=== PATIENT | female | born 1955 | race Caucasian/White ===

== ENCOUNTER → 2022-01-02 | Outpatient (CLI) | payer MEDICARE | LOC: COL.RAD 11:32 | DX: E04.2 Nontoxic multinodular goiter (principal) ==

== ENCOUNTER → 2022-02-28 | Outpatient (CLI) | payer MEDICARE ==
[2022-02-28 11:28] LABS: HEMATOCRIT 44.4 % (37.0-47.0); MEAN CELL VOLUME 94 fl (80.0-100.0); MEAN CORPUSCULAR HEMOGLOBIN 32 pg (27-31); MEAN CORPUSCULAR HGB CONC 34 g/dl (33.0-37.0); MEAN PLATELET VOLUME 9.6 fl (7.4-10.4); PLATELET COUNT 389 K/mm3 (130-400); RED BLOOD COUNT 4.75 M/mm3 (4.10-5.30)
[2022-02-28 11:48] LABS: ALBUMIN 4.3 gm/dL (3.4-4.8); BILIRUBIN,TOTAL 0.3 mg/dL (0.2-1.2); C-REACTIVE PROTEIN 0.06 mg/dL (0.00-0.50); CREATININE, serum 0.77 mg/dL (0.57-1.11); POTASSIUM 3.8 mmol/L (3.5-4.5); TOTAL PROTEIN 7.7 gm/dL (6.2-8.1)
[2022-03-01 02:02] LABS: IMMUNOGLOBULIN A 186 mg/dL (69-517); IMMUNOGLOBULIN G 731 mg/dL (552-1631); IMMUNOGLOBULIN M, QUANTITATIVE 48 mg/dL (33-293)
[2022-03-01 12:40] LABS: C-ANCA 17 U/mL (0-99)
[2022-03-01 18:53] LABS: TB GOLD INTERPRETATION Negative (Negative)
[2022-03-02 13:14] LABS: IMMUNO G SUBCLASS 1 371.2 mg/dL (()); IMMUNO G SUBCLASS 3 50.7 mg/dL (()); IMMUNO G SUBCLASS 4 8.2 mg/dL (3.9-86.4)
[2022-03-02 14:55] LABS: ANGIOTENSIN CONVERTING ENZYME 34 U/L (16 - 85)
[2022-03-03 08:37] LABS: IMMUNOGLOBULIN D <2 mg/dL (<=10)
== END ==
LOC: COL.LAB 10:01
PROVIDERS: Internal Medicine Pulmonary Disease
DX: J47.9 Bronchiectasis, uncomplicated (principal); E88.01 Alpha-1-antitrypsin deficiency

== ENCOUNTER → 2022-06-29 | Outpatient (CLI) | payer MEDICARE ==
[2022-06-29 15:56] LABS: CALCIUM 9.1 mg/dL (8.4-10.2); CREATININE, serum 0.76 mg/dL (0.57-1.11); POTASSIUM 3.6 mmol/L (3.5-4.5)
== END ==
LOC: COL.LAB 15:23
PROVIDERS: Internal Medicine
DX: Z01.812 Encounter for preprocedural laboratory examination (principal); J47.9 Bronchiectasis, uncomplicated

== ENCOUNTER 2022-12-18 15:00 | Outpatient (RCR) | payer MEDICARE ==
[~2022-12-18 15:00] MED LIST: BENICAR40 MG PO; FLONASEALLERGY NS; KLOR-CON 1010 MEQ PO; LASIX 40MG TABL40 MG PO; VITAMIN D31000 IU PO; ZOVIRAX400 MG PO; ZYPITAMAG4 MG PO
== END 2022-12-24 | disposition home or self-care (01) ==
LOC: PT.GENESIS
DX: M81.0 Age-related osteoporosis without current pathological fracture (principal); J47.9 Bronchiectasis, uncomplicated; R53.1 Weakness

== ENCOUNTER 2023-06-29 10:45 | Emergency (ER) | payer MEDICARE ==
[~2023-06-29] VITALS: Ht 152.4 cm; Wt 50.9 kg
[~2023-06-29 10:45] MED LIST changes: +PAXLOVID CO-PA1 EACH PO
[2023-06-29] MEDS ORDERED: FLEXERIL 1010 MG/TAB PO (13:46)
[2023-06-29] MEDS ORDERED: PERCOCET 325 MG1 TA2 PO (13:46)
[2023-06-29] MEDS ORDERED: MEDROL 4MG DOSPA4 MG PO (14:00)
[2023-06-29 14:05] VITALS: BP 157/91; PULSE 62; TEMP 97.8
== END 2023-06-29 14:06 | disposition home or self-care (01) ==
LOC: COL.ER 10:45
DX: M54.17 Radiculopathy, lumbosacral region (principal)

== ENCOUNTER 2023-08-24 10:30 | Outpatient (RCR) | payer MEDICARE ==
[~2023-08-24 10:30] MED LIST changes: +COREG 25MG25 MG/TAB PO; +FLEXERIL 1010 MG/TAB PO; +MEDROL 4MG DOSPA4 MG PO; +NEURONTIN600 MG/TAB PO; +PERCOCET 325 MG1 TA2 PO
== END 2023-08-26 | disposition home or self-care (01) ==
LOC: PT.GENESIS
DX: M48.062 Spinal stenosis, lumbar region with neurogenic claudication (principal); M51.36 Other intervertebral disc degeneration, lumbar region; M79.605 Pain in left leg

== ENCOUNTER 2023-08-28 12:49 | Outpatient (RCR) | payer MEDICARE ==
[~2023-08-28] VITALS: Ht 152.4 cm; Wt 54.2 kg
[~2023-08-28 12:49] MED LIST changes: -CALCIUM-500 5001 CTB PO; -COMPLETE MULTI1 TAB PO; -EVENITY (2210 MG/2.3 SQ
[2023-08-28 13:10] VITALS: BP 137/86; PULSE 64; TEMP 98.1
[2023-08-28] MEDS ORDERED: EVENITY (2210 MG/2.3 SQ (13:28)
[2023-08-28] MEDS ORDERED: CALCIUM-500 5001 CTB PO (13:28)
[2023-08-28] MEDS ORDERED: COMPLETE MULTI1 TAB PO (13:29)
--- NOTE | 2023-08-28 13:43 | NUR ---
Pt tolerated evenity without issue. She exits dept with steady gait.
== END 2023-08-28 13:44 | disposition home or self-care (01) ==
LOC: EUO 12:49
DX: M81.0 Age-related osteoporosis without current pathological fracture (principal)
CPT/HCPCS: J3111

== ENCOUNTER → 2023-08-28 | Outpatient (CLI) | payer MEDICARE ==
[~2023-08-28] MED LIST changes: +CALCIUM-500 5001 CTB PO; +COMPLETE MULTI1 TAB PO; +EVENITY (2210 MG/2.3 SQ
== END ==
LOC: MC.RAD 09:18
DX: Z12.31 Encounter for screening mammogram for malignant neoplasm of breast (principal); M54.42 Lumbago with sciatica, left side